=== PATIENT | male | born 1990 | race American Indian/Alaskan Native ===

== ENCOUNTER 2017-04-15 05:31 | Emergency (ER) | payer OTHER ==
[2017-04-15 06:28] LABS: Basophils % (Auto) 0.6 % (0.0-1.8); Eosinophils % (Auto) 0.2 % (0.0-4.3); Hematocrit 42.8 % (35.5-45.6); Mean Corpuscular HGB Conc 33 % (32-34); Mean Corpuscular Hemoglobin 28 pg (28-32); Mean Corpuscular Volume 87 fl (84-94); Red Blood Count 4.94 M/mm3 (3.65-5.03); Red Cell Distribution Width 14.7 % (13.2-15.2)
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
[2017-04-15 06:50] LABS: Platelet Count 236 K/mm3 (140-440)
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
[2017-04-15] MEDS ORDERED: MOTRIN PO ONE (08:31)
[2017-04-15 09:31] VITALS: BP 97/53
== END 2017-04-15 08:50 | disposition home or self-care (01) ==
LOC: ED 05:31
DX: R07.89 Other chest pain (principal); M54.89 Other dorsalgia; F17.200 Nicotine dependence, unspecified, uncomplicated; V89.2XXA Person injured in unspecified motor-vehicle accident, traffic, initial encounter; Y93.89 Activity, other specified; Y99.8 Other external cause status; Y92.410 Unspecified street and highway as the place of occurrence of the external cause
CPT/HCPCS: 36415; 70450; 71111; 72125; 85025; 99284; G0480; 80320